=== PATIENT | female | born 2005 | race Caucasian/White ===

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

== ENCOUNTER 2024-04-27 09:33 | Emergency (ER) | payer OTHER ==
[~2024-04-27] VITALS: Ht 154.9 cm; Wt 83.0 kg
[~2024-04-27 09:33] MED LIST changes: +CIPRO250 MG PO; +VYVANSE30 MG PO; +ZOFRAN ODT4 MG PO
[2024-04-27] MEDS ORDERED: PENICILLIN V P500 MG PO (09:56)
[2024-04-27] MEDS ORDERED: DIFLUCAN100 MG PO (09:56)
[2024-04-27 10:12] VITALS: BP 126/71
== END 2024-04-27 10:13 | disposition home or self-care (01) ==
LOC: ED 09:33
DX: S02.5XXA Fracture of tooth (traumatic), initial encounter for closed fracture (principal); Z79.899 Other long term (current) drug therapy; X58.XXXA Exposure to other specified factors, initial encounter
CPT/HCPCS: 99282